=== PATIENT | female | born 1985 | race Caucasian/White ===

== ENCOUNTER 2021-09-10 07:24 | Day surgery (SDC) | payer BC ==
[~2021-09-10] VITALS: Ht 165.1 cm; Wt 89.4 kg
[2021-09-10] MEDS ORDERED: LEXAPRO 10MG10 MG PO (07:56)
[2021-09-10] MEDS ORDERED: [UNRECOGNIZED DRUG - OTHER] TP (07:57)
[2021-09-10] MEDS ORDERED: TRIVORA-281 TAB PO (07:58)
[2021-09-10] MEDS ORDERED: LIPITOR20 MG PO (07:59)
[2021-09-10] MEDS ORDERED: ONE-A-DAY ESSE1 EACH PO (08:02)
[2021-09-10] MEDS ORDERED: ZYRTEC 10MG10 MG PO (08:02)
[2021-09-10 08:15] VITALS: BP 151/99; PULSE 107; TEMP 98.4
[2021-09-10 09:40] VITALS: BP 133/107; PULSE 94; TEMP 98.4
--- NOTE | 2021-09-10 09:40 | NUR ---
0940- PATIENT BROUGHT BACK TO [facility] 3 AMBULATED TO CHAIR WITHOUT DIFFICULTY. PATIENT IS ALERT AND ORIENTED. STATES SHE WOULD LIKE CRACKERS AND JUICE. IV INFUSING. PLACED ON VITAL SIGNS MACHINE, STABLE. REPORT RECIEVED FROM [facility]. AT BEDSIDE TO DRIVE PATIENT HOME. WARM BLANKET PROVIDED, CALL PERES WITHIN REACH. WILL MONITOR. 0955- VITAL SIGNS STABLE. TOLERATING FOOD AND DRINK WITHOUT DIFFICULTY. AWAITING TO SPEAK WITH DR. MELLO. 1010- DR. MELLO AT BEDSIDE FOR REPORT. PATIENT STATES SHE FEELS READY TO GO HOME. VITAL SIGNS STABLE. IV REMOVED, INTACT. PATIENT TO GET DRESSED AT THIS TIME. 1025- DISCHARGE INSTRUCTIONS REVIEWED WITH PATIENT AND FAMILY. BROUGHT DOWN TO LOBBY VIA WHEEL CHAIR. ALL BELONGINGS IN HAND. TO DRIVE PATIENT HOME.
[2021-09-10 09:55] VITALS: BP 142/94; PULSE 88
[2021-09-10 10:10] VITALS: BP 140/99; PULSE 89
== END 2021-09-10 10:25 | disposition home or self-care (01) ==
LOC: SDCO 07:24
DX: Z12.11 Encounter for screening for malignant neoplasm of colon (principal); Z80.0 Family history of malignant neoplasm of digestive organs; K64.0 First degree hemorrhoids; E78.5 Hyperlipidemia, unspecified; R03.0 Elevated blood-pressure reading, without diagnosis of hypertension
CPT/HCPCS: J2704; J7120